=== PATIENT | female | born 1965 | race Caucasian/White ===

== ENCOUNTER 2016-11-02 15:59 | Emergency (ER) | payer SELFPAY ==
[~2016-11-02] VITALS: Ht 162.6 cm; Wt 45.5 kg
--- NOTE | 2016-11-02 16:08 | ED.REPORT ---
HPI-Chest Pain 40 and Over Date of Service Nov 02, 2016 ED Provider: Leonardo Whitehead MD The pt is a 51 year old female with no known medical history who presents to the ED complaining of chest pain. The pt felt that she was being followed by people today with harmful intent, which caused her to feel stressed. This stress and anxiety resulted in chest tightness radiating into her left arm and back, and shortness of breath. The pt denies swelling in her legs or calves. She also denies recent immobilization, history of CO or history of blood clots. Patient reports no ongoing symptoms. Nursing Notes Stated Complaint: CHEST PAIN Nursing Notes Reviewed: Yes Allergies: Coded Allergies: risperidone (Verified Allergy, Intermediate, HALLUCINATIONS, 11/02/16) trazodone (Verified Allergy, Intermediate, HALLUCINATIONS, 11/02/16) General Time Seen by MD: 16:07 Chief Complaint Chest pain Hx Obtained From: Patient Arrived By: Walk-in Sudden in Onset?: No Onset Occurred: 5 - 8 hours ago Symptom Duration: Since onset Recent Healthcare: No recent doctor visit, No recent hospitalization Similar Sx Previous: No Past Medical History Past Medical History none reported Past Surgical History none reported Smoking History Unknown if Ever Smoker Social History Drug Use: THC Ambulatory Status Independent Review of Systems Respiratory: Reports: Shortness of breath, Denies: Non-productive cough Cardiovascular: Reports: Chest pain GI: Denies: Abdominal pain, Vomiting Musculoskeletal: Reports: Back pain, Denies: Neck pain Skin: Denies Rash Psychiatric: Reports: Anxiety Complete sys rev & neg: except as marked. Physical Exam Initial Vital Signs Vital Signs (First) Date Time Temp Pulse Resp B/P Pulse Ox O2 Delivery O2 Flow Rate FiO2 11/02/16 16:12 36.9 77 12 115/62 100 Room Air Initial VS: Reviewed General/Constitutional: Awake, Alert Respiratory / Chest: Atraumatic, Breath sounds NL, Breath sounds = bilat, No respiratory distress Cardiovascular: Heart rate NL, Regular rhythm, Heart sounds NL, No gallop, No murmurs, No rubs good distal pulses Abdomen: Atraumatic, Soft, Non-tender Neck: Atraumatic, Supple, Full range of motion Back: Atraumatic, Full range of motion Lower Extremity / Pelvis / MS: Atraumatic, Full range of motion no calf swelling or tenderness Skin: Atraumatic, Color NL, No rash, Warm, Dry Neurologic: Oriented X3, Speech NL, No motor deficits, No sensory deficits Psychiatric: Affect NL Abnormal Mood/Affect: Positive: Anxious Head / Eyes: Atraumatic, Normocephalic, PERRL, EOMI ENT: Atraumatic, Airway patent, Mucous membranes moist Upper Extremity / MS: Atraumatic, Full range of motion Interpretation & Diagnostics Lab Results Interpretation Result Diagram: 11/02/16 1629 11/02/16 1629 Test 11/02/16 16:29 11/02/16 17:59 White Blood Count 14.7th/mm3 (3.8-10.1) Red Blood Count 4.38mil/mm3 (3.90-5.20) Hemoglobin 13.6g/dL (12.0-15.6) Hematocrit 39.1% (35.0-46.0) Mean Corpuscular Volume 89.3fL (81-100) Mean Corpuscular Hemoglobin 31.1pg (27.0-35.0) Mean Corpuscular Hemoglobin Concent 34.8% (32.0-37.0) Red Cell Distribution Width 14.1% (12.3-15.4) Platelet Count 318bil/L (150-400) Neutrophils (%) (Auto) 60.7% (40-74) Lymphocytes (%) (Auto) 31.1% (14-46) Monocytes (%) (Auto) 6.8% (4-12) Eosinophils (%) (Auto) 0.8% (0-5) Basophils (%) (Auto) 0.3% (0-3) Sodium Level 139mEq/L (134-144) Potassium Level 4.2mEq/L (3.5-5.2) Chloride Level 98mEq/L (97-108) Carbon Dioxide Level 26mmol/L (18-29) Blood Urea Nitrogen 7mg/dL (6-24) Creatinine 0.57mg/dL (0.57-1.00) Estimat Glomerular Filtration Rate 161mL/min (>59) Glucose Level 94mg/dL (60-99) Calcium Level 9.3mg/dL (8.5-10.1) Magnesium Level 2.2mg/dL (1.6-2.6) Total Bilirubin 0.3mg/dL (0.0-1.2) Aspartate Amino Transf (AST/SGOT) 25U/L (0-50) Alanine Aminotransferase (ALT/SGPT) 14U/L (0-32) Alkaline Phosphatase 88U/L (25-150) Troponin T < 0.010ug/L (0.0-0.011) Total Protein 7.8g/dL (6.4-8.4) Albumin 4.7g/dL (3.4-5.0) D-Dimer < 0.50mg/L FEU (<0.50) ECG Interpretation ECG Interpretation: normal sinus rhythm with a rate of 59 normal axis normal interval no ST segment elevation no T wave inversions no prior EKG available for comparison Time: 17:53 Interpreted by: ED physician X-Ray Chest Interpretation Chest Xray Interpretation: IMPRESSION: No abnormality is seen in the upright AP chest. Dictated by: Hi Landers M.D. on 11/02/2016 at 16:42 Approved by: Hi Landers M.D. on 11/02/2016 at 16:42 Interpretation / Wet Read by: Interpret - Radiologist Re-Eval/Medical Decision Med Decision/Clinical Course The pt is a 51 year old female with no known medical history who presents to the ED complaining of chest pain. The pt felt that she was being followed by people today with harmful intent, which caused her to feel stressed. This stress and anxiety resulted in chest tightness radiating into her left arm and back, and shortness of breath. The pt denies swelling in her legs or calves. She also denies recent immobilization, history of CO or history of blood clots. Patient reports no ongoing symptoms. Here in the emergency department the patient is afebrile, hemodynamically stable and in no apparent distress though she appears somewhat anxious. The patient was given oral lorazepam for anxiety. Laboratory studies were obtained as below: CBC unremarkable except leukocytosis of 14.7 CMP unremarkable Troponin negative D-dimer negative EKG: normal sinus rhythm with a rate of 59 normal axis normal interval no ST segment elevation no T wave inversions no prior EKG available for comparison Chest x-ray: IMPRESSION: No abnormality is seen in the upright AP chest. Overall presentation most consistent with panic and anxiety. Patient admits to a high level of anxiety and previous symptoms in the past related to panic attack. Initial screening EKG and troponin revealed no evidence of cardiac ischemia. D-dimer is negative and overall presentation is not suggestive of pulmonary embolism. She has no major pulmonary embolus risk factors and no findings on examination suggestive of DVT. There are no findings of pneumonia or pneumothorax on chest x-ray. She reports feeling much better and would like to be discharged. I feel that this is appropriate. She will follow up closely with her primary care physician. Discussed that we cannot definitively rule out acute coronary syndrome without admission and serial troponins and patient does not desire this. Prior to discharge follow-up and return precautions were reviewed in detail with the patient who verbalized understanding and agreement with the plan. The patient was discharged in stable condition. Time of Eval: 19:11 Patient Status: Condition improved Re-Evaluation/Progress Note: Pt rechecked, who is resting. The diagnosis and plan for discharge are discussed. The pt understands and agrees with the plan. All questions are addressed at this time. Counseled Regarding: Diagnosis, Lab results, Need for follow-up, When/why to return to ED Discharge & Departure Primary Impression: Anxiety Additional Impression: Chest pain Chest pain type: unspecified Qualified Code: R07.9 - Chest pain, unspecified Disposition: Home Discharge Condition All VS Reviewed: Yes Condition: Stable Patient Instructions: Noncardiac Chest Pain (ED) Additional Instructions: Thank you for seeking care at the emergency room. We do not find any evidence of heart attack or blood clot. Our primary goal today in the Emergency Department was to evaluate you for any life-threatening conditions. Your evaluation was reassuring. You should follow-up with your primary doctor in the next week. You should return to the Emergency Department immediately if you develop fevers , vomiting, cough, shortness of breath, chest pain, lightheadedness, weakness or any other concerning signs or symptoms. Thank you for letting us partake in your care today. Referrals: Vishnu Goldstein Attestation Portions of this note were transcribed by Jihan Martin. I, Dr. Whitehead personally performed the history, physical exam and medical decision-making; I reviewed and confirmed the accuracy of the information in the transcribed note. copies to: Vishnu Goldstein Beck O MD Nov 02, 2016 16:08 JIHAN MARTIN Nov 02, 2016 16:57
[2016-11-02 16:12] VITALS: BP 115/62; PULSE 77; RESP 12; O2SAT 100
[2016-11-02 16:36] LABS: BASOPHILS % (AUTO) 0.3 % (0-3); EOSINOPHILS % (AUTO) 0.8 % (0-5); MONOCYTES % (AUTO) 6.8 % (4-12); Mean Corpuscular Hemoglobin 31.1 pg (27.0-35.0); Mean Corpuscular Volume 89.3 fL (81-100); NEUTROPHILS % (AUTO) 60.7 % (40-74); Platelet Count 318 bil/L (150-400)
--- NOTE | 2016-11-02 16:44 | DRSVH ---
PROCEDURE: X-RAY CHEST ONE VIEW, PORTABLE ([id number]) INDICATIONS: cp TECHNIQUE: One view of the chest was acquired. COMPARISON: None. FINDINGS: Surgical changes and devices: food and drug research scientist leads are seen over the chest. Lungs and pleura: No pleural effusions or pneumothorax. Lungs are clear. Mediastinum: Mediastinal contours appear normal. Heart size is normal. Bones and chest wall: No suspicious bony lesions. Overlying soft tissues appear unremarkable. IMPRESSION: No abnormality is seen in the upright AP chest. Dictated by: Hi Landers M.D. on 11/02/2016 at 16:42 Approved by: Hi Landers M.D. on 11/02/2016 at 16:42
[2016-11-02] MEDS ORDERED: LORazepam 1 mg Tablet PO ONE (17:00)
[2016-11-02 17:14] LABS: Magnesium 2.2 mg/dL (1.6-2.6)
[2016-11-02 17:15] LABS: TROPONIN T < 0.010 ug/L (0.0-0.011)
[2016-11-02 17:31] VITALS: BP 117/60; PULSE 71; RESP 17; O2SAT 98
[2016-11-02 19:33] VITALS: BP 110/75; PULSE 99; RESP 21; O2SAT 99
== END 2016-11-02 19:34 | disposition home or self-care (01) ==
LOC: EDUNIT# 15:59 → EDBD 15:59 → SED 15:59
DX: F41.9 Anxiety disorder, unspecified (principal); R07.9 Chest pain, unspecified; Z88.8 Allergy status to other drugs, medicaments and biological substances

== ENCOUNTER 2016-11-06 05:25 | Emergency (ER) | payer OTHER ==
[~2016-11-06] VITALS: Ht 162.6 cm; Wt 40.9 kg
[2016-11-06 05:57] VITALS: BP 112/66; PULSE 60; RESP 16; O2SAT 97
--- NOTE | 2016-11-06 06:10 | ED.REPORT ---
HPI-Psychiatric Illness Date of Service Nov 06, 2016 ED Provider: Chidi Lemus MD Patient is a 51 year old female who presents to the ED via police stating that she would like to "get [her] head checked out." She was brought in by medics earlier after getting kicked out of [facility] but declined to be checked in at the time. Upon interview she states she is here because "I'm having a nervous breakdown and wanted safe place to stay" and she wanted her head checked out because "I've lost my mind being followed." She denies suicidal or homicidal ideation or any other symptoms. Patient denies taking any daily medications or having any medical/psychiatric problems. She also denies drug use. She was seen in the department 4 days ago for anxiety induced chest pain d/t feeling like she was being followed by people with harmful intent. Nursing Notes Stated Complaint: SUICIDAL IDEATIONS Chief Complaint: Psychiatric Complaint Nursing Notes Reviewed: Yes Allergies: Coded Allergies: risperidone (Verified Allergy, Intermediate, HALLUCINATIONS, 11/02/16) trazodone (Verified Allergy, Intermediate, HALLUCINATIONS, 11/02/16) topiramate (Verified Allergy, Unknown, 11/06/16) General Time Seen by MD: 06:09 Chief Complaint Paranoid Hx Obtained From: Patient Arrived By: Police Onset Occurred: Onset unknown Symptom Duration: Since onset Severity: Current: No pain currently Severity: Maximum: No pain Immunizations: Unknown Recent Healthcare: Recent doctor visit Similar Sx Previous: Yes Risk-Psychiatric Illness Suicide Risk Stratification Suicide Risk Factors - Adult: No: Alcohol use, Substance abuse RF Statements: Risk factors reviewed Past Medical History Past Medical History none reported Past Surgical History laparoscopies Reports: Hysterectomy Reports: Tubal ligation Smoking History Current Every Day Smoker Social History Drug Use: Denies drug use, THC Ambulatory Status Independent Review of Systems Review of Systems Note: +paranoid Respiratory: Denies: Non-productive cough Cardiovascular: Denies: Chest pain GI: Denies: Abdominal pain Psychiatric: Denies: Homicidal ideation, Suicidal ideation Complete sys rev & neg: except as marked. Physical Exam Initial Vital Signs Vital Signs (First) Date Time Temp Pulse Resp B/P Pulse Ox O2 Delivery O2 Flow Rate FiO2 11/06/16 05:57 36.5 60 16 112/66 97 Room Air Initial VS: Reviewed, Vital signs normal Head / Eyes: Atraumatic, Normocephalic Neck: Full range of motion Skin: Warm, Dry General/Constitutional: Awake, Alert, No acute distress Neurologic: Oriented X3, Speech NL Psychiatric: Not suicidal, Not homicidal Paranoid Respiratory / Chest: Atraumatic, Breath sounds NL, Breath sounds = bilat, No respiratory distress Cardiovascular: Heart rate NL, Regular rhythm, Heart sounds NL, No murmurs Abdomen: Atraumatic, Soft, Non-tender, No guarding, No rebound Interpretation & Diagnostics Lab Results Interpretation Test 11/06/16 14:52 Hold Urine Received (Received) Re-Eval/Medical Decision Med Decision/Clinical Course 51-year-old female history of psychosis and homelessness presenting requesting living situation. Patient eloped while waiting for director of social media marketing. She denied any suicidal ideation or homicidal ideation. Re-Evaluation/Progress : Time of Eval: 08:28 Re-Evaluation/Progress Note: Rechecked pt who is requesting to leave. Pt denies SI and HI. Discussed plan for discharge. Patient understands and agrees with plan. All questions addressed at this time. Counseled Regarding: Diagnosis, Need for follow-up, When/why to return to ED Discharge & Departure Impression: Primary Impression: Homeless Additional Impression: Anxiety )( Condition at Discharge: No danger to self Disposition: Home Discharge Condition All VS Reviewed: Yes Condition: Stable Additional Instructions: Thank you for coming to the emergency department today. You came in requesting housing but have decided to leave before being evaluated by a director of social media marketing. You deny any thoughts of hurting yourself or others. Return to the emergency department if you decide you would like further assistance or if you have any thoughts of hurting yourself or others. Referrals: NOPCP (PCP) Nikki Attestation Portions of this note were transcribed by Randy Atkinson. I, Dr. Lemus personally performed the history, physical exam and medical decision-making; I reviewed and confirmed the accuracy of the information in the transcribed note. Signed by: Nikki Alejandro, 11/06/16 Chidi Lemus MD Nov 06, 2016 06:10 RANYD ATKINSON Nov 06, 2016 06:38
--- NOTE | 2016-11-06 12:34 | NUR ---
Social Work: Brief Note EMR reviewed. Patient is a 51 year old female who was brought to ED for suicidal ideations. Pt informed ED staff that she is looking for a safe place to stay where she can shower. Patient was brought in by SCSO from [facility]. Per staff, patient is refusing to return to [facility]. SW was unable to meet with patient for completion of mental health assessment. SW was assisting another ED patient with mental health assessment and placement during pt's time in ED. Patient decided to leave AMA from ED. Patient has no additional needs at this time. BONITA Goncalves
== END 2016-11-06 10:25 | disposition home or self-care (01) ==
LOC: SED 05:25
DX: F41.9 Anxiety disorder, unspecified (principal); Z59.0 Homelessness; F17.200 Nicotine dependence, unspecified, uncomplicated; Z90.710 Acquired absence of both cervix and uterus; Z88.8 Allergy status to other drugs, medicaments and biological substances

== ENCOUNTER 2016-11-06 14:03 | Emergency (ER) | payer OTHER ==
[~2016-11-06] VITALS: Ht 162.6 cm; Wt 50.0 kg
[2016-11-06 14:07] VITALS: BP 165/91; PULSE 97; RESP 16; O2SAT 98
--- NOTE | 2016-11-06 14:54 | ED.REPORT ---
HPI-Psychiatric Illness Date of Service Nov 06, 2016 ED Provider: Sanchez Aparicio PA-C Trisha is a 51-year-old female who presents to the emergency department seeking a safe place to stay. Patient reports that she was followed here from [facility] by people who are seek to do her harm. The patient is homeless. She reports "a girl followed here from [facility] because she just doesn't like me. " She was staying with her sister, but "she will not let me eat." She denies suicidal or homicidal ideation, auditory or visual hallucinations. Review of records K the patient was seen in this department earlier today for similar complaints after being brought in by the police. [facility]. She left prior to being seen by social work. Seen 4 days ago and this department for anxiety induced chest pain. Nursing Notes Stated Complaint: MENTAL HEALTH Chief Complaint: Psychiatric Complaint Nursing Notes Reviewed: Yes Allergies: Coded Allergies: risperidone (Verified Allergy, Intermediate, HALLUCINATIONS, 11/02/16) trazodone (Verified Allergy, Intermediate, HALLUCINATIONS, 11/02/16) topiramate (Verified Allergy, Unknown, 11/06/16) General Time Seen by MD: 14:29 Chief Complaint Other (seeking a place to stay) Risk-Psychiatric Illness Suicide Risk Stratification RF Statements: Risk factors N/A Past Medical History Past Medical History none reported Past Surgical History laparoscopies Reports: Hysterectomy Reports: Tubal ligation Smoking History Current Every Day Smoker Social History Drug Use: Denies drug use, THC Ambulatory Status Independent Review of Systems General: Denies fever, chills, malaise. HEENT: Denies congestion, headache, sore throat. Respiratory: Denies dyspnea, cough, shortness of breath, wheezing. Cardiovascular: Admits chest pain, palpitations. Gastrointestinal: Admits abdominal pain. Denies vomiting, diarrhea Genitourinary: Denies frequency, urgency, dysuria, hematuria. Otherwise as noted in HPI. Physical Exam General: Well appearing, well developed, well nourished, mild distress. Intermittently tearful. Head: Atraumatic, normocephalic. Eyes: No scleral icterus or injection. No discharge. Vision grossly intact. ENT: Voice clear, hearing grossly intact. Respiratory: Regular rate and rhythm. Breath sounds present, clear to auscultation and equal bilaterally. No respiratory distress. No increased work of breathing, speaks in complete sentences. Cardiovascular: Regular rate and rhythm, without murmur, gallop or rub. No pedal edema. Gastrointestinal: Mild diffuse tenderness without guarding or rebound. Bowel sounds normoactive. Skin: Warm and dry. Neurological: Grossly nonfocal. Psychological: Alert and oriented. Speech appropriate, linear and logical. Behavior appropriate. Initial Vital Signs Vital Signs (First) Date Time Temp Pulse Resp B/P Pulse Ox O2 Delivery O2 Flow Rate FiO2 11/06/16 14:07 37.1 97 16 165/91 98 Room Air Elevated blood pressure Re-Eval/Medical Decision Med Decision/Clinical Course 31-year-old female returns to the emergency department seeking a safe place to stay. She reports she is being followed by people who wished to her harm. States that her sister does not let her eat. Denies suicidal ideation, homicidal ideation, auditory or visual hallucinations. Seen previously in this department for similar symptoms, previous to that seen for chest pain that was thought to be associated with anxiety. In review of systems, the patient again complains of chest pain as well as abdominal pain. Physical examination is benign, with normal vital signs. Patient's speech is somewhat rambling, expressing some paranoid delusions. I discussed this case with BONTIA Mccracken. Unfortunately the patient eloped before further assessment could be obtained. While she does appear to have some paranoia and possibly hypomania, I do not believe that she is a threat to herself or others at this time and is capable of making this decision. Discharge & Departure Departure Notes This patient eloped prior to being seen by social work. Impression: Primary Impression: Homeless Disposition: AGAINST MEDICAL ADVICE Referrals: NOPCP (PCP) Sanchez Aparicio PA-C Nov 06, 2016 14:54
== END 2016-11-06 15:15 | disposition left against medical advice (07) ==
LOC: SED 14:03
DX: Z59.0 Homelessness (principal); F17.200 Nicotine dependence, unspecified, uncomplicated; Z90.710 Acquired absence of both cervix and uterus; Z53.29 Procedure and treatment not carried out because of patient's decision for other reasons; Z88.8 Allergy status to other drugs, medicaments and biological substances

== ENCOUNTER 2016-11-07 18:13 | Emergency (ER) | payer OTHER ==
[~2016-11-07] VITALS: Ht 162.6 cm; Wt 38.6 kg
[2016-11-07 18:32] VITALS: BP 98/60; PULSE 56; RESP 16; O2SAT 98
--- NOTE | 2016-11-07 18:40 | ED.REPORT ---
HPI-Psychiatric Illness Date of Service Nov 07, 2016 ED Provider: Abel Rodo Venita GRIFFITHS A 51 year old female who denies any psychiatric history is brought to the ED by police for a mental health evaluation. The pt recently moved from [place] following a "false arrest" in 05/2016 and is concerned that people have followed her from [place] with harmful intent. She is currently complaining of abdominal pain and general myalgia, stating that her pain is due to being hungry and the fact that she has lost approximately thirty pounds over the last several months. In the ED, the pt is requesting food and a "safe place to stay. " She states that she has attempted to get a bed at [facility], but they "won't let her be clean" due to their shower schedule. The pt denies suicidal or homicidal ideation. She also denies drug or alcohol use, or use of any psychiatric medications. The pt has been seen in the ED four times in the last five days. Nursing Notes Stated Complaint: PSYCHIATRIC HELP Chief Complaint: Psychiatric Complaint Nursing Notes Reviewed: Yes Allergies: Coded Allergies: risperidone (Verified Allergy, Intermediate, HALLUCINATIONS, 11/02/16) trazodone (Verified Allergy, Intermediate, HALLUCINATIONS, 11/02/16) topiramate (Verified Allergy, Unknown, 11/06/16) General Time Seen by MD: 18:40 Chief Complaint Other (Mental health evaluation) Hx Obtained From: Patient, Police Arrived By: Police Symptom Duration: Since onset Recent Healthcare: Recent doctor visit Similar Sx Previous: Yes Risk-Psychiatric Illness Suicide Risk Stratification Suicide Risk Factors - Adult: No: Prior psych admission, Substance abuse RF Statements: Risk factors reviewed Past Medical History Past Medical History Notes: four ED visits between 11/02/2016 and 11/07/2016 Past Medical History distant depression denies psychiatric history Past Surgical History laparoscopies Reports: Hysterectomy Reports: Tubal ligation Smoking History Current Every Day Smoker Social History recently moved from [place] Drug Use: Denies drug use, THC Ambulatory Status Independent Review of Systems Respiratory: Denies: Non-productive cough, Shortness of breath GI: Reports: Abdominal pain, Denies: Nausea, Vomiting Skin: Denies Rash Psychiatric: Denies: Homicidal ideation, Suicidal ideation Complete sys rev & neg: except as marked. Musculoskeletal: Reports: Myalgia, Denies: Neck pain Physical Exam Initial Vital Signs Vital Signs (First) Date Time Temp Pulse Resp B/P Pulse Ox O2 Delivery O2 Flow Rate FiO2 11/07/16 18:32 37.2 56 16 98/60 98 Room Air Initial VS: Reviewed General/Constitutional: Awake, Alert Neurologic: Oriented X3, Speech NL, No motor deficits, No sensory deficits Psychiatric: Affect NL paranoid Head / Eyes: Atraumatic, Normocephalic, PERRL, EOMI ENT: Atraumatic, Airway patent, Mucous membranes moist Respiratory / Chest: Atraumatic, Breath sounds NL, Breath sounds = bilat, No respiratory distress Cardiovascular: Heart rate NL, Regular rhythm, Heart sounds NL Abdomen: Atraumatic, Soft, No guarding, No rebound LUQ and LLQ tenderness Skin: Atraumatic, Color NL, No rash, Warm, Dry Neck: Atraumatic, Supple, Full range of motion Back: Atraumatic, Full range of motion Upper Extremity / MS: Atraumatic, Full range of motion Lower Extremity / Pelvis / MS: Atraumatic, Full range of motion Interpretation & Diagnostics Lab Results Interpretation Result Diagram: 11/07/16 19311/07/16 193 Test 11/07/16 18:57 11/07/16 19:36 Urine Color Yellow (YELLOW) Urine Appearance Clear (CLEAR,HAZY) Urine pH 6.0 (5.0-8.0) Urine Specific Robards <1.005 (1.003-1.035) Urine Protein Negativemg/dL (NEG,TRACE) Urine Glucose (UA) Negativemg/dL (NEGATIVE) Urine Ketones Negativemg/dL (NEGATIVE) Urine Occult Blood Trace (NEGATIVE) Urine Nitrite Negative (NEGATIVE) Urine Bilirubin Negative (NEGATIVE) Urine Urobilinogen Normalmg/dL (NORMAL) Urine Leukocyte Esterase Negative (NEGATIVE) Urine RBC 0-2/hpf (0-2) Urine WBC 0-5/hpf (0-5) Urine Epithelial Cells Few/hpf (NONE-MOD) Urine Crystals None seen (NONE SEEN) Urine Bacteria Few/hpf (NONE-FEW) Urine Hyaline Casts None/lpf (NONE) Urine Granular Casts None seen (NONE SEEN) Urine Waxy Casts None seen (NONE SEEN) Urine Red Blood Cell Casts None seen (NONE SEEN) Urine White Blood Cell Casts None seen (NONE SEEN) Urine Mucus None seen (None Seen) Urine Trichomonas None seen (NONE SEEN) Urine Yeast None (NONE SEEN) Urinalysis Comment None Urine Culture Reflexed Not indicated Hold Urine Received (Received) White Blood Count 12.9th/mm3 (3.8-10.1) Red Blood Count 4.14mil/mm3 (3.90-5.20) Hemoglobin 12.7g/dL (12.0-15.6) Hematocrit 37.1% (35.0-46.0) Mean Corpuscular Volume 89.6fL (81-100) Mean Corpuscular Hemoglobin 30.7pg (27.0-35.0) Mean Corpuscular Hemoglobin Concent 34.2% (32.0-37.0) Red Cell Distribution Width 14.0% (12.3-15.4) Platelet Count 266bil/L (150-400) Neutrophils (%) (Auto) 57.1% (40-74) Lymphocytes (%) (Auto) 34.0% (14-46) Monocytes (%) (Auto) 7.2% (4-12) Eosinophils (%) (Auto) 1.1% (0-5) Basophils (%) (Auto) 0.4% (0-3) Sodium Level 138mEq/L (134-144) Potassium Level 3.5mEq/L (3.5-5.2) Chloride Level 99mEq/L (97-108) Carbon Dioxide Level 26mmol/L (18-29) Blood Urea Nitrogen 11mg/dL (6-24) Creatinine 0.63mg/dL (0.57-1.00) Estimat Glomerular Filtration Rate 144mL/min (>59) Glucose Level 146mg/dL (60-99) Calcium Level 9.7mg/dL (8.5-10.1) Total Bilirubin 0.3mg/dL (0.0-1.2) Aspartate Amino Transf (AST/SGOT) 19U/L (0-50) Alanine Aminotransferase (ALT/SGPT) 13U/L (0-32) Alkaline Phosphatase 76U/L (25-150) Total Protein 7.0g/dL (6.4-8.4) Albumin 4.2g/dL (3.4-5.0) Thyroid Stimulating Hormone (TSH) 0.575uIU/mL (0.450-4.500) Hold Leon Top Tube Received (Received) CT Abd / Pelvis Interpretation IMPRESSION: Cause of pain is not identified. Cause of leukocytosis is not identified. No acute abnormality seen in the abdomen and pelvis CT with contrast. Dictated by: Hi Landers M.D. on 11/07/2016 at 21:55 Approved by: Hi Landers M.D. on 11/07/2016 at 22:00 Interpretation / Wet Read by: Interpret - Radiologist Re-Eval/Medical Decision Med Decision/Clinical Course Patient was not suicidal or homicidal and appears to be in the state of mind to care for herself. She does complain of some paranoia, but denies any mental health problems in the past. Currently not on any medications. I have advised that she follow up with [facility] for mental health evaluation. Resources are provided to her for housing. With left-sided abdominal pain and leukocytosis CT abdomen and pelvis with contrast was checked by returned unremarkable. Patient was reassured by this. She did not want Toradol for her pain. She is frustrated that we will not provide housing for her, but I explained that this is not our role as a hospital. She expresses diss[facility] with the [facility], but there is availability there should she choose to go there. Source of Hx: Old records Re-Evaluation/Progress #1: Time of Eval: 21:15 Patient Status: Condition improved Re-Evaluation/Progress Note: Pt rechecked, who is resting. Need for CT is discussed. Re-Evaluation/Progress #2: Time of Eval: 23:02 Patient Status: Condition improved Re-Evaluation/Progress Note: Pt rechecked, who is resting. The diagnosis and plan for discharge are discussed. The pt understands and agrees with the plan. All questions are addressed at this time. Counseled Regarding: Diagnosis, Lab results, Need for follow-up, When/why to return to ED Discharge & Departure Impression: Primary Impression: Paranoia Additional Impressions: Abdominal pain Abdominal location: unspecified location Qualified Code: R10.9 - Unspecified abdominal pain Homelessness Disposition: Home Discharge Condition All VS Reviewed: Yes Condition: Stable Patient Instructions: Acute Abdominal Pain (ED) Additional Instructions: Thank you for entrusting us with your care. Your evaluation was reassuring. Follow up with the resources provided by the pediatric social worker. Follow up with one of the shelters for housing. Call [facility] on Thursday for an appointment on Thursday. [facility]: Call your primary care physician to arrange a follow up appointment in the next several days. Return to the emergency department if you develop any new or worsening symptoms. Referrals: [facility] Crisis Respite Scribe Attestation Portions of this note were transcribed by Jihan Martin. I, Dr. Roman personally performed the history, physical exam and medical decision-making; I reviewed and confirmed the accuracy of the information in the transcribed note. copies to: [facility]; Crisis Respite Rodo Roman DO Nov 07, 2016 18:40 JIHAN MARTIN Nov 07, 2016 19:55
[2016-11-07 19:50] LABS: BASOPHILS % (AUTO) 0.4 % (0-3); EOSINOPHILS % (AUTO) 1.1 % (0-5); MONOCYTES % (AUTO) 7.2 % (4-12); Mean Corpuscular Hemoglobin 30.7 pg (27.0-35.0); Mean Corpuscular Volume 89.6 fL (81-100); NEUTROPHILS % (AUTO) 57.1 % (40-74); Platelet Count 266 bil/L (150-400)
[2016-11-07] MEDS ORDERED: Iohexol 300 mg/mL 30 mL Inj PO ONE (19:55)
[2016-11-07 20:25] VITALS: BP 101/62; PULSE 68; RESP 18; O2SAT 98
--- NOTE | 2016-11-07 22:01 | DRSVH ---
PROCEDURE: CT ABDOMEN AND PELVIS WITH CONTRAST ([id number]) INDICATIONS: abdominal pain, leukocytosis TECHNIQUE: After the administration of oral and intravenous contrast, 5 mm thick sections acquired from the diap hragms to the symphysis. 5 mm thick coronal and sagittal reformats were performed. For radiation do se reduction, the following was used: automated exposure control, adjustment of mA and/or kV accordi ng to patient size. COMPARISON: None. FINDINGS: Image quality: Excellent. ABDOMEN: Lung bases: Lung bases are clear. Heart size is normal. Solid organs: Liver and spleen are normal in size and enhancement. Gallbladder is normal in appeara nce. Biliary system is non-dilated. Pancreas enhances normally. There is a 2 cm duodenal diverticul um from the mid polar region of the second part of the duodenum. No adrenal nodules. Kidneys are nor mal in size and enhancement, without hydronephrosis. Peritoneum and bowel: Stomach, small bowel, and colon loops are normal in caliber and wall thickness . No free fluid or air. There is a normal appendix. Nodes and vessels: No retroperitoneal or mesenteric adenopathy. Aorta and inferior vena cava are no rmal in caliber. Miscellaneous: No ventral hernias. PELVIS: Genitourinary: Bladder wall thickness is normal. Neither ovary is identified. Uterus may be atrophi c or possibly removed. Miscellaneous: No inguinal hernias or adenopathy. Bones: No suspicious bony lesions. No vertebral body compression fractures. IMPRESSION: Cause of pain is not identified. Cause of leukocytosis is not identified. No acute abnormality seen in the abdomen and pelvis CT with contrast. Dictated by: Hi Landers M.D. on 11/07/2016 at 21:55 Approved by: Hi Landers M.D. on 11/07/2016 at 22:00
[2016-11-07 22:46] LABS: APPEARANCE,URINE CLEAR (CLEAR,HAZY); COLOR,URINE YELLOW (YELLOW); OCCULT BLOOD,URINE TRACE (NEGATIVE); UROBILINOGEN,URINE NORMAL (NORMAL)
--- NOTE | 2016-11-11 18:29 | NUR ---
ED AIR TWIST OPERATOR Note: Collateral contact after discharge AIR TWIST OPERATOR received a call from Pt's sister Arminda Ramírez requesting information about Pt's recent visits. AIR TWIST OPERATOR directed Arminda to [facility] records department. Arminda indicated that she would like to be supportive to her sister in the future. Arminda requested that she be called if Pt gives permission at [phone]. AIR TWIST OPERATOR also provided Arminda with the Pt Complaint Hotline number. BONITA Mccracken, AAC
== END 2016-11-07 23:35 | disposition home or self-care (01) ==
LOC: SED 18:13
DX: F22 Delusional disorders (principal); R10.32 Left lower quadrant pain; R10.12 Left upper quadrant pain; M79.1 Myalgia; F32.9 Major depressive disorder, single episode, unspecified; F17.200 Nicotine dependence, unspecified, uncomplicated; Z90.710 Acquired absence of both cervix and uterus; Z59.0 Homelessness; Z88.8 Allergy status to other drugs, medicaments and biological substances
CPT/HCPCS: 36415; 74177; 80053; 81000; 81002; 81025; 82075; 84443; 85025; 99284; Q9967

== ENCOUNTER 2016-11-15 20:03 | Emergency (ER) | payer OTHER ==
--- NOTE | 2016-11-15 20:15 | ED.REPORT ---
HPI-Abd Pain F 40 and Over Date of Service Nov 15, 2016 ED Provider: Nursing Notes Stated Complaint: ABDOMINAL PAIN Chief Complaint: Female Abdominal Pain Allergies: Coded Allergies: risperidone (Verified Allergy, Intermediate, HALLUCINATIONS, 11/02/16) trazodone (Verified Allergy, Intermediate, HALLUCINATIONS, 11/02/16) topiramate (Verified Allergy, Unknown, 11/06/16) General Time Seen by MD: 20:14 Past Medical History Past Medical History Notes: four ED visits between 11/02/2016 and 11/07/2016 Past Medical History distant depression denies psychiatric history Past Surgical History laparoscopies Reports: Hysterectomy Reports: Tubal ligation Smoking History Current Every Day Smoker Social History recently moved from [place] Drug Use: Denies drug use, THC Ambulatory Status Independent Discharge & Departure Referrals: NOPCP (PCP) German Tejeda DO Nov 15, 2016 20:15
== END 2016-11-15 20:16 | disposition left against medical advice (07) ==
LOC: SED 20:03
DX: R10.9 Unspecified abdominal pain (principal); Z53.21 Procedure and treatment not carried out due to patient leaving prior to being seen by health care provider